=== PATIENT | male | born 2000 | race Caucasian/White ===

== ENCOUNTER 2023-10-13 02:03 | Emergency (ER) | payer OTHER ==
[2023-10-13] MEDS ORDERED: Ondansetron PF 4 MG/2 ML Vial ONE (02:20)
[2023-10-13] MEDS ORDERED: Boostrix 0.5 ML (Tdap) VIAL (>/=7 yrs of age) ONE (02:20)
[2023-10-13] MEDS ORDERED: Morphine 4 MG/ML VIAL ONE (02:20)
[2023-10-13 02:24] LABS: #Basophils 0.06 10x3/uL (0.0-0.2); %Basophils 0.3 % (0.0-1.0); %Eosinophils 1.1 % (0.0-10.0); %Lymphocytes 11.7 % (21.0-51.0); %Neutrophils 81.3 % (42.0-75.0); Hematocrit 44.1 % (42.0-52.0); Mean Corpuscular Hemoglobin 29.5 pg (27.0-31.0); Mean Corpuscular Volume 86.6 fL (78.0-98.0); Mean Platelet Volume 9.6 fL (7.4-10.4); Platelet Count 342 10x3/uL (130-400); RBC Distribution Width 12.2 % (11.5-14.5); Red Blood Cell (RBC) Count 5.09 mill/uL (4.70-6.10)
[2023-10-13 02:36] LABS: Alcohol Less than 10.0 mg/dL (Less than 10)
[2023-10-13 02:39] LABS: ALT (SGPT) 32 U/L (8-55); AST (SGOT) 29 U/L (5-34); Albumin 3.6 g/dL (3.5-5.0); Alkaline Phosphatase 66 U/L (40-110); Anion Gap 17 mmol/L (10-20); BUN (Urea Nitrogen) 19 mg/dL (8.9-20.6); Bilirubin, Total 0.3 mg/dL (0.2-1.2); Calc. Creatinine Clearance 0 mL/min (70-130); Calcium 9.1 mg/dL (7.8-10.44); Carbon Dioxide 21 mmol/L (22-29); Chloride 105 mmol/L (98-107); Estimated GFR 70; Globulin 2.8 g/dL (2.4-3.5); Glucose 140 mg/dL (70-105); Lipase 16 U/L (8-78); Protein, Total 6.4 g/dL (6.0-8.3); Sodium 139 mmol/L (136-145)
[2023-10-13 02:45] LABS: Prothrombin Time 12.8 sec (12.0-14.7)
[2023-10-13 03:15] LABS: PTT 20.6 sec (22.9-36.1)
[2023-10-13] MEDS ORDERED: Iopamidol-370 76% 500 ML MDV (1 ML CHARGE) ONE (09:45)
== END 2023-10-13 04:54 | disposition home or self-care (01) ==
LOC: ERS 02:03
DX: S32.311A Displaced avulsion fracture of right ilium, initial encounter for closed fracture (principal); S40.022A Contusion of left upper arm, initial encounter; S30.811A Abrasion of abdominal wall, initial encounter; S90.811A Abrasion, right foot, initial encounter; S80.812A Abrasion, left lower leg, initial encounter; M25.561 Pain in right knee; I10 Essential (primary) hypertension; Z23 Encounter for immunization; V89.9XXA Person injured in unspecified vehicle accident, initial encounter
CPT/HCPCS: 70450; 71045; 71260; 72125; 72170; 74177; 80053; 80307; 83690; 85025; 85610; 85730; 90471; 90715; 93005; 96374; 96375; G0390; J2270; J2405; Q9967